=== PATIENT | female | born 1990 | race Caucasian/White ===

== ENCOUNTER 2017-04-03 07:12 | Inpatient (IN) ==
[2017-04-03] MEDS ORDERED: Ringers Solution, Lactated 1,000 ML ONE ×3 (07:43→14:04)
[2017-04-03] MEDS ORDERED: Ringers Solution, Lactated 1,000 ML IVC ONE (08:13)
[2017-04-03] MEDS ORDERED: CeFAZolin Syr 3,000MG/30 ML 3,000 MG/30 ML SYRINGE IVPB ONE (08:13)
[2017-04-03] MEDS ORDERED: Famotidine 20 MG/2 ML VIAL IVP ONE (08:13)
[2017-04-03] MEDS ORDERED: Metoclopramide 10 MG/2 ML VIAL IVP ONE (08:13)
[2017-04-03 08:24] LABS: Basophils % 0.3 %; Eosinophils # 0.1 K/mcL (0.0-0.6); Eosinophils % 0.9 %; Hematocrit 38.7 % (35.3-44.9); Hemoglobin 12.7 g/dL (11.5-15.4); Immature Granulocytes % 0.4 % (0-4); Lymphocytes # 2.1 K/mcL (0.6-4.6); Lymphocytes % 17.8 %; Mean Corpuscular HGB Conc 32.8 g/dL (31.6-35.5); Mean Corpuscular Hemoglobin 27.3 pg (28.0-33.3); Mean Platelet Volume 9.8 fL (9.4-12.4); Monocytes # 0.7 K/mcL (0.0-1.3); Monocytes % 6.1 %; Platelet Count 443 K/mcL (140-400); Red Blood Count 4.66 M/mcL (3.82-4.97); Red Cell Distribution Width 13.4 % (11.5-14.5); Segmented Neutrophils % 74.5 %
[2017-04-03 08:38] LABS: Amphetamine Screen,Urine Negative ng/mL (Cutoff=1000); Barbiturate Screen,Urine Negative ng/mL (Cutoff=200); Benzodiazepines Screen,Urine Negative ng/mL (Cutoff=200); Cannabinoid Screen,Urine Negative ng/mL (Cutoff = 50); Cocaine Screen,Urine Negative ng/mL (Cutoff= 300); Opiate Screen,Urine Negative ng/mL (Cutoff=300); Phencyclidine Screen,Urine Negative ng/mL (Cutoff=25)
--- NOTE | 2017-04-03 08:47 | Anesthesia Evaluation PreOp ---
Date of Encounter: 04/03/17 Time of Encounter: 08:45 - Past History Planned Operation: Repeat Cardiac History: Denies any Significant Hx Pulmonary History: Denies Any Significant HX INSTRUMENT CHECKER History: Denies Any Significant HX Other Medical History: GERD, Other (Morbid Obesity) Anesthesia History: No Prior Anesthetic Complications : Yes (39 week ) Alcohol Use: none Drug use: none Medications and Allergies Doxylamine/Pyridoxine HCl [Diclegis Dr 10-10 mg Tablet] 1 each PO BID 12/31/16 [ History] Omeprazole [PriLOSEC] 20 mg PO DAILY 12/31/16 [History] Vit/Iron Fumarate/FA [ Tablet] 1 each PO DAILY 12/31/16 [ History] cephALEXin [Keflex] 500 mg PO TID #21 capsule 01/01/17 [Rx] 3 Allergy/AdvReac Type Severity Reaction Status Date / Time No Known Allergies Allergy Verified 04/03/17 08:12 - Meds/Allergy Pre-op Review Medications Reviewed: Yes Allergies Reviewed: Yes Beta Blockers on Current Med List: No Anesthesia Results - Labs 04/03/17 08:05 Anesthesia Exam O2 Sat Height 1.65 m Height 1.65 m Weight 142.2 kg Weight 142.2 kg Height: 5'5 Weight: 313 lbs NPO (# of Hours): MN Pain Scale: 0 - HEENT Pupil (Motor): Pupils equal, EOMI Mallampati: II Oral Opening: Greater than 3 - INSTRUMENT CHECKER LOC: Oriented INSTRUMENT CHECKER Motor: Normal RUE, Normal LUE, Normal RLE, Normal LLE, Normal Face INSTRUMENT CHECKER Sensory: Normal: RUE, LUE, RLE, LLE, Face - Cardiac Rhythm: Regular Murmur: None JVD: No Carotid Bruit: No - Pulmonary Breath Sounds: bilateral Clear Respiratory Effort: Symmetrical Anesthesia Assess/Plan ASA Score: 3 ([place] GERD) Modified Andrey Scale for Level of Consciousness: Cooperative, oriented, and tranquil Anesthetic Plan: Regional Monitoring Plan: Standard Monitors Recovery Plan: PACU (Discussed SAB, possible GA, agrees to proceed)
--- NOTE | 2017-04-03 09:05 | OB/GYN History & Physical ---
Date of Encounter: 04/03/17 Time of Encounter: 09:00 Assessment and Plan (1) 39 weeks gestation of Current visit: Yes Status: Chronic (2) Previous delivery affecting Current visit: Yes Status: Chronic Patient declines TOLAC. Informed consent previously obtained and all questions have been answered for her. (3) complicated by cleft lip Current visit: Yes Status: Acute Workers Compensation Claims Examiner notified Qualifiers: Fetus number: single or unspecified fetus Qualified Code(s): O35.8XX0 - Maternal care for other (suspected) abnormality and damage, not applicable or unspecified (4) Single umbilical artery Current visit: Yes Status: Acute Nursery aware. Both kidneys visualized. History of Present Illness Chief complaint: repeat scheduled HPI: Ms. Abarca is a 26 year old female G 3 P 1-0-1-1 at 39 1/7 weeks presents to labor and delivery for repeat section at term. She denies any contractions, vaginal bleeding, or leaking fluid. She reports good movement. Her has been complicated by cleft lip and single umbillical artery. She has been followed by MFM with delivery plan to deliver here. Past Med Surg Social Fam HX - Past Medical History Source: patient Medical history: GERD Psychiatric history: no psych history - Past Surgical History Surgical History: , other (wisdom teeth) - Social History Smoking Status: Never smoker Smokeless Tobacco Status: No Alcohol use: none Drug use: none - Family History Mother Adopted: No Living Status: Still Living Obstetrical History - Pregnancies : 3 Para: 1 Ab's: 1 Livin Medications and Allergies Omeprazole [PriLOSEC] 20 mg PO DAILY 12/31/16 [History] Vit/Iron Fumarate/FA [ Tablet] 1 each PO DAILY 12/31/16 [ History] 3 Allergy/AdvReac Type Severity Reaction Status Date / Time No Known Allergies Allergy Verified 04/03/17 08:12 Review of System OB All systems PM: reviewed and no additional remarkable complaints except as stated Exam - Constitutional Constitutional: well developed, well nourished, no acute distress, obese - HEENT HEENT: EOMI - Lungs Respiratory exam: CTAB - Cardiovascular Cardiovascular exam: RRR - Abdomen Abdomen: Present: bowel sounds normal, gravid, non tender Results Result Diagrams: 04/03/17 08:05 Abnormal lab results WBC 12.1 K/mcL (4.3-11.1) H 04/03/17 08:05 MCH 27.3 pg (28.0-33.3) L 04/03/17 08:05 Plt Count 443 K/mcL (140-400) H 04/03/17 08:05 Neutrophils # 9.0 K/mcL (1.6-8.9) H 04/03/17 08:05 All other labs normal. - VTE Reasons for not Prescribing Prophylaxis: Treatment not Indicated - Low risk for VTE
[2017-04-03] MEDS ORDERED: *HR* FentaNYL (PF) 100 MCG/2 ML VIAL ONE (12:46)
[2017-04-03] MEDS ORDERED: EPHEDrine 50 MG/ML VIAL ONE (12:46)
[2017-04-03] MEDS ORDERED: *HR* Oxytocin 10 UNIT/ML VIAL IM ONE ×2 (12:46→14:04)
[2017-04-03] MEDS ORDERED: Water for inj. (sterile) 10 ML IV ONE (12:46)
[2017-04-03] MEDS ORDERED: Ondansetron 4 MG/2 ML VIAL IVP ONE (13:47)
[2017-04-03] MEDS ORDERED: *HR* Promethazine 25 MG/ML VIAL IVP PRN (13:47)
[2017-04-03] MEDS ORDERED: Acetaminophen IV 1,000 MG/100 ML INFUS..BTL IVPB ONE (13:48)
--- NOTE | 2017-04-03 16:39 | Anesthesia Evaluation Post Op ---
Date of Encounter: 04/03/17 Time of Encounter: 16:20 - Vital Signs Vital Signs: VSS throughout PACU stay. - Lungs Lungs: Clear Ascult./Percussion - Airway Airway: Non-obstructed - Cardiovascular Regular Rate - Mental Status Mental Status: Alert & Oriented, Answers Appropriately - Pain Pain Scale: 0 Pain Scale used: Numeric (1 - 10) - Nausea Vomiting Nausea Vomiting: Responds to treatment with IV Meds (nausea, no emesis. was given 1 dose of IV zofran with relief of symptoms.) - Hydration Hydration: NPO, Cordero catheter - Discharge PostOp Status: Transfer Patient to floor
[2017-04-03] MEDS ORDERED: Metoclopramide 10 MG/2 ML VIAL IVP PRN (17:00)
[2017-04-03] MEDS ORDERED: Simethicone 80 MG TAB.CHEW PO PRN (17:00)
[2017-04-03] MEDS ORDERED: Oxytocin 20 units/ LR 1000 mL 20 UNIT/1,000 ML BAG IVC SCH (17:00)
[2017-04-03] MEDS ORDERED: Sennosides 8.6 MG TABLET PO PRN (17:00)
[2017-04-03] MEDS ORDERED: Ibuprofen 400 MG TABLET PO PRN (17:00)
[2017-04-03] MEDS ORDERED: Ondansetron 4 MG/2 ML VIAL IVP PRN (17:00)
[2017-04-03] MEDS ORDERED: *HR* OxyCODONE Immed Rel 5 MG TABLET PO PRN (17:00)
[2017-04-03] MEDS ORDERED: *HR* OxyCODONE/APAP 5/325 TABLET PO PRN (17:00)
[2017-04-03] MEDS ORDERED: Acetaminophen 325 MG TABLET PO PRN (17:00)
--- NOTE | 2017-04-03 17:01 | OB/GYN Procedure Note ---
Section - Date of procedure: 04/03/17 Preop diagnosis: desires repeat Post-op diagnosis: same Procedure: section, repeat low transverse Surgeon: Sahara Barone Estimated blood loss (cc): 400 Was there an respiratory equipment assistant present: Yes Neon Glass Blower: Danielle Whyte Clerical Dentist Assistant: Angelia David Anesthesia Type: Spinal section complications: none Disposition: L&D Recovery Room Specimens: Placenta (hold) - (s) Infant A Delivery Date: 04/03/17 Delivery Time: 13:49 Presentation: vertex Gender: Male Viability: Viable Pounds: 7 Ounces: 8 Gram Weight: 3.39 kg at 1 minute: 8 at 5 minutes: 9 Shoulder Dystocia: not encountered Specimens collected: cord blood Placenta: partial extraction Cord: 2 umbilical vessels - Narrative Narrative: Patient was taken to the operative suite and placed under spinal anesthetic. She was then prepped and draped in normal sterile fashion in the dorsal supine position. Timeout was then performed. Antibiotics were given at room time. SCDs are on and active. Pfannenstiel skin incision is then made and carried through to underlying layer of fascia with the Bovie. The fascia was then incised in the midline and incision extended laterally with the Hall scissors. The fascia was tented up and dissected off the rectus muscles sharply. The rectus muscles were in the midline and the peritoneum was tented up and entered sharply with the Metzenbaum scissors. The peritoneal incision was then extended bluntly. The bladder blade was then inserted and the vesicouterine peritoneum was entered sharply. Bladder flap was created digitally. A low transverse uterine incision was then made. The infant vertex was brought to the incision and the infant was delivered using fundal pressure. There was no nuchal cord. Cord was clamped and cut. was handed to waiting nursery staff. Placenta delivered spontaneously complete and intact with a two-vessel cord. The uterus was cleared of all clots and debris using moist laparotomy sponge. The uterine incision was then closed using 0 Vicryl in a running locked fashion. A second layer of the same suture was used to obtain excellent hemostasis. The abdomen was then cleared of all clots and debris using copious irrigation. The fascial incision was then closed using 0 PDS in a running fashion. The subcuticular area is reapproximated with monocryl suture. The skin was closed using 4-0 Vicryl in a subcuticular fashion. Frank dressing is then placed. Mother and taken to recovery in stable condition.
[2017-04-03] MEDS: Ibuprofen 600 MG TABLET PO PRN (20:16)
[2017-04-03] MEDS: Oxytocin 20 units/ LR 1000 mL 20 UNIT/1,000 ML BAG IVC SCH (20:17)
[2017-04-04] MEDS: Ibuprofen 600 MG TABLET PO PRN ×3 (03:07→20:53)
[2017-04-04] MEDS: Oxytocin 20 units/ LR 1000 mL 20 UNIT/1,000 ML BAG IVC SCH ×2 (03:27→14:38)
[2017-04-04] MEDS: Prenatal Vit/FA 1 EACH TABLET PO SCH (08:04)
--- NOTE | 2017-04-04 08:55 | OB/GYN Progress Note ---
Date of Encounter: 04/04/17 Time of Encounter: 08:52 - Assessment and Plan (1) Status post repeat low transverse section Current Visit: Yes Status: Acute POD 1 Continue routine PP care PO pain meds as needed Advance diet as tolerated Ambulate Anticipate discharge tomorrow Subjective - Subjective Interval history: Pt reports pain well controlled with PO meds Cramping minimal Using ibuprofen Bottle feeding with cleft palate nipple Voiding without difficulty Passing flatus, no BM yet Tolerating clear liguid diet Patient reports: appetite normal, voiding normally, pain well controlled, ambulating normally [place]: doing well, bottle feeding Objective - Vital Signs Latest vital signs: Vital Signs Temp Pulse Resp BP Pulse Ox 04/04/17 03:15 97.8 F 75 16 116/77 96 04/04/17 00:11 98.3 F 70 16 113/75 97 04/03/17 20:00 97.5 F L 60 16 115/75 97 04/03/17 19:02 97.4 F L 64 16 114/69 96 04/03/17 18:00 97.4 F L 59 18 117/70 04/03/17 17:30 97.4 F L 63 16 119/75 97 04/03/17 17:04 97.8 F 62 16 107/64 98 Intake and Output 04/03/17 04/04/17 04/04/17 23:59 07:59 15:59 Intake Total 1000 / 1000 Output Total 350 / 350 375 / 375 Balance -350 / -350 625 / 625 Intake: IV Fluids 1000 / 1000 Pitocin 20 unit In 1,000 ml @ 1000 / 1000 125 mls/hr IVC .Q8H [facility] Rx#: [id number] Output: Catheter 350 / 350 375 / 375 Urethral (Cordero) 200 / 200 375 / 375 Other: Meal Dinner Percent of Meal Consumed 100% Weight 140.1 kg 137.212 kg Patient Weight 04/04/17 23:59 Weight 137.212 kg - Exam Lungs: bilateral: normal Chest: Normal S1, Normal S2 Extremities: Present: normal Abdomen: Present: normal appearance, soft Incision: Present: normal, intact Uterus: Present: normal, firm Fundal Height: 0 (At umbilicus) - Labs Labs: Laboratory Results - last 24 hr 04/03/17 04/03/17 08:09 14:11 Urine Opiates Screen Negative Ur Barbiturates Screen Negative Ur Phencyclidine Scrn Negative Ur Amphetamines Screen Negative U Benzodiazepines Scrn Negative Urine Cocaine Screen Negative U Marijuana (THC) Screen Negative Baby's Blood Type O RH POSITIVE Mother's Blood Type O RH NEGATIVE Rhogam Indicated YES
[2017-04-04] MEDS: *HR* OxyCODONE/APAP 5/325 TABLET PO PRN ×2 (14:11→22:44)
[2017-04-05] MEDS: Ibuprofen 600 MG TABLET PO PRN ×2 (04:04→13:45)
[2017-04-05] MEDS: Prenatal Vit/FA 1 EACH TABLET PO SCH (08:21)
[2017-04-05 08:22] VITALS: BP 107/73
--- NOTE | 2017-04-05 09:53 | Discharge Summary ---
Date of Encounter: 04/05/17 Time of Encounter: 09:48 - Discharge Diagnosis (1) Status post repeat low transverse section Priority: Primary Status: Acute Comments: S/P ceserean delivery day 2 Pain well controlled Passing flatus; tolerating liquid diet, may advance as tolerated Lochia light and without clots Voiding without difficulty Bottle feeding VSS Discharge home today after infant circumcision. - Discharge Medications Prescriptions: Ibuprofen [Motrin] 600 mg PO Q6HR PRN #30 tablet PRN Reason: Cramping/Mild Pain Docusate [Colace] 100 mg PO BID PRN #20 capsule PRN Reason: Constipation Ferrous Sulfate 325 mg PO DAILY #30 tablet OxyCODONE/APAP 5/325 [Percocet 5/325 MG] 1 each PO Q6H PRN 5 Days #20 tablet PRN Reason: Moderate pain 4-6 Home Medications: Omeprazole [PriLOSEC] 20 mg PO DAILY 12/31/16 [History] Vit/Iron Fumarate/FA [ Tablet] 1 each PO DAILY 12/31/16 [ History] Docusate [Colace] 100 mg PO BID PRN #20 capsule 04/05/17 [Rx] Ferrous Sulfate 325 mg PO DAILY #30 tablet 04/05/17 [Rx] Ibuprofen [Motrin] 600 mg PO Q6HR PRN #30 tablet 04/05/17 [Rx] OxyCODONE/APAP 5/325 [Percocet 5/325 MG] 1 each PO Q6H PRN 5 Days #20 tablet 01/10 [Rx] Simethicone [Gas-X] 80 mg PO TID PRN tab.chew 04/05/17 [Rx] Allergies/Adverse Reactions: 3 Allergy/AdvReac Type Severity Reaction Status Date / Time No Known Allergies Allergy Verified 04/03/17 08:12 Data Procedures and tests throughout hospitalization: Laboratory Tests 04/03/17 04/03/17 04/03/17 08:05 08:09 14:11 WBC 12.1 H RBC 4.66 Hgb 12.7 Hct 38.7 MCV 83.0 MCH 27.3 L MCHC 32.8 RDW 13.4 Plt Count 443 H MPV 9.8 Immature Gran % 0.4 Seg Neutrophils % 74.5 Lymphocytes % 17.8 Monocytes % 6.1 Eosinophils % 0.9 Basophils % 0.3 Neutrophils # 9.0 H Lymphocytes # 2.1 Monocytes # 0.7 Eosinophils # 0.1 Basophils # 0.0 Urine Opiates Screen Negative Ur Barbiturates Screen Negative Ur Phencyclidine Scrn Negative Ur Amphetamines Screen Negative U Benzodiazepines Scrn Negative Urine Cocaine Screen Negative U Marijuana (THC) Screen Negative Screen NEGATIVE Baby's Blood Type O RH POSITIVE Mother's Blood Type O RH NEGATIVE Rhogam Indicated YES Rhogam Req for Mother 1 Date of admission: 04/03/17 07:12 Primary care physician: PCP NONE Consults: 04/03/17 17:00 Consult to Network Support (W&C) [CONS] Routine Reason For Exam: Reason for SW Consult: cleft lip/palate Discharging clinician: Pat Rodriguez Anticipated date of discharge: 04/05/17 - Patient Status Disposition: Home, Self-Care Condition: Good Functional capacity at discharge: independent ambulation Overall status at discharge: patient is progressing back to baseline - Discharge Instructions Follow Up With: NONE,PCP [Primary Care Provider] - Sahara Barone DO [Partnered Physician] - - Diet and Activity Activity: increase activity as tolerated Diet: regular diet Hospital Course Reason for admission: section, IUP at term Delivery: Episiotomy: none Laceration: none Other procedures: none complications: none Discharge diagnosis: IUP at term delivered Julian baby: male Time Attestation: Total time spent providing and/or coordinating discharge services: Time Spent: Less than 30 minutes - VTE Reasons for not Prescribing Prophylaxis: Treatment not Indicated - Low risk for VTE Documentation of Mechanical Device: Intermittent pneumatic compression device Exam - Constitutional Vitals: Temp Pulse Resp BP Pulse Ox 97.8 F 88 16 107/73 98 04/05/17 07:50 04/05/17 07:50 04/05/17 07:50 04/05/17 07:50 04/05/17 07:50 General appearance IM: cooperative, A&O X 3, pleasant - Respiratory Respiratory exam: Present: CTAB - Cardiovascular Cardiovascular exam IM: Present: RRR, +S1, +S2 - GI/Abdominal GI/Abdominal exam IM: normal bowel sounds, soft Incision: normal, dry, intact (Frank dressing C/D/I) - Rectal Rectal exam: deferred - Uterine Tone: Firm Uterus Position: 1 Finger Below Umbilicus, Midline - Extremities Exam Extremities exam IM: Present: normal capillary refill, normal inspection, pedal edema (2+ BLE), radial pulses palpable and symmetrical - Neurological Exam Neurological exam: alert, oriented X3
[2017-04-05] MEDS ORDERED: Rho Immune Globulin 1,500 UNIT SYRINGE IM ONE (13:37)
== END 2017-04-05 17:00 | disposition home or self-care (01) | DRG 765 ==
LOC: 1NENULAB 07:12 → 1NENUOBS 17:02
PROVIDERS: ADMIT Obstetrics & Gynecology; ATTEND Obstetrics & Gynecology

== ENCOUNTER 2018-12-08 10:06 | Inpatient (IN) ==
[2018-12-08] MEDS ORDERED: Metoclopramide 10 MG/2 ML VIAL IVP ONE (10:58)
[2018-12-08] MEDS ORDERED: CeFAZolin Syr 3,000MG/30 ML 3,000 MG/30 ML SYRINGE IVPB ONE (10:58)
[2018-12-08] MEDS ORDERED: Famotidine 20 MG/2 ML VIAL IVP ONE (10:58)
[2018-12-08] MEDS ORDERED: Oxytocin 20 units/ LR 1000 mL 20 UNIT/1,000 ML BAG IVC ONE (10:58)
[2018-12-08] MEDS: Ringers Solution, Lactated 1,000 ML IVC SCH ×2 (11:09→11:41)
[2018-12-08] MEDS ORDERED: Ondansetron 4 MG/2 ML VIAL IVP PRN ×2 (11:20→16:47)
[2018-12-08] MEDS ORDERED: Morphine Sulfate 2 MG/ML SYRINGE IVP PRN (11:20)
[2018-12-08] MEDS ORDERED: Ibuprofen 400 MG TABLET PO PRN (11:20)
[2018-12-08] MEDS ORDERED: *HR* OxyCODONE/APAP 5/325 TABLET PO PRN (11:20)
[2018-12-08] MEDS ORDERED: Naloxone 0.4 MG/ML INJ IVP PRN ×2 (11:20→16:47)
[2018-12-08] MEDS ORDERED: *HR* Oxytocin 10 UNIT/ML VIAL IM ONE (11:21)
[2018-12-08] MEDS ORDERED: *HR* FentaNYL (PF) 100 MCG/2 ML VIAL ONE (11:21)
[2018-12-08] MEDS ORDERED: *HR* Morphine Sulfate/PF 10 MG/10 ML AMPUL ONE (11:21)
[2018-12-08 11:25] LABS: Basophils % 0.3 %; Eosinophils # 0.1 K/mcL (0.0-0.6); Eosinophils % 1.1 %; Hemoglobin 12.4 g/dL (11.5-15.4); Immature Granulocytes % 0.4 % (0-4); Lymphocytes # 1.8 K/mcL (0.6-4.6); Lymphocytes % 16.1 %; Mean Corpuscular HGB Conc 32.6 g/dL (31.6-35.5); Mean Corpuscular Volume 82.6 fL (83.0-100.0); Mean Platelet Volume 9.9 fL (9.4-12.4); Monocytes # 0.7 K/mcL (0.0-1.3); Neutrophils # 8.5 K/mcL (1.6-8.9); Platelet Count 386 K/mcL (140-400); Red Cell Distribution Width 13.6 % (11.5-14.5); Segmented Neutrophils % 76.1 %; White Blood Count 11.2 K/mcL (4.3-11.1)
[2018-12-08 11:27] LABS: Amphetamine Screen,Urine Negative ng/mL (Cutoff=1000); Barbiturate Screen,Urine Negative ng/mL (Cutoff=200); Benzodiazepines Screen,Urine Negative ng/mL (Cutoff=200); Cannabinoid Screen,Urine Negative ng/mL (Cutoff = 50); Cocaine Screen,Urine Negative ng/mL (Cutoff= 300); Opiate Screen,Urine Negative ng/mL (Cutoff=300); Phencyclidine Screen,Urine Negative ng/mL (Cutoff=25)
[2018-12-08] MEDS ORDERED: Acetaminophen IV 1,000 MG/100 ML INFUS..BTL IVPB ONE ×2 (11:48→14:45)
[2018-12-08] MEDS ORDERED: Acetaminophen IV 1,000 MG/100 ML INFUS..BTL IVPB SCH (12:00)
[2018-12-08] MEDS ORDERED: Ondansetron 4 MG/2 ML VIAL ONE (12:19)
[2018-12-08] MEDS ORDERED: *HR* Midazolam HCl 2 MG/2 ML VIAL ONE (12:49)
[2018-12-08] MEDS ORDERED: Ringers Solution, Lactated 1,000 ML ONE (13:07)
[2018-12-08] MEDS ORDERED: *HR* HYDROmorphone (PF) 1 MG/ML SYRINGE IVP PRN (13:47)
[2018-12-08] MEDS ORDERED: Measles/Mumps/Rubella Vacc 0.5 ML VIAL SQ ONE (16:47)
[2018-12-08] MEDS ORDERED: Acetaminophen 325 MG TABLET PO PRN (16:47)
[2018-12-08] MEDS ORDERED: Metoclopramide 10 MG/2 ML VIAL IVP PRN (16:47)
[2018-12-08] MEDS ORDERED: Sennosides 8.6 MG TABLET PO PRN (16:47)
[2018-12-08] MEDS ORDERED: Simethicone 80 MG TAB.CHEW PO PRN (16:47)
[2018-12-08] MEDS ORDERED: *HR* OxyCODONE Immed Rel 5 MG TABLET PO PRN (16:47)
[2018-12-08] MEDS ORDERED: Ringers Solution, Lactated 1,000 ML IVC SCH (16:47)
[2018-12-08] MEDS ORDERED: Rho Immune Globulin 1,500 UNIT SYRINGE IM ONE (16:47)
[2018-12-08] MEDS ORDERED: ceFAZolin 1,000 MG in Water for inj. (sterile) 10 ML IVP SCH (17:00)
[2018-12-08] MEDS: *HR* OxyCODONE/APAP 5/325 TABLET PO PRN (17:51)
[2018-12-08] MEDS: metroNIDAZOLE 500 MG TABLET PO SCH (20:00)
[2018-12-08] MEDS: Famotidine 20 MG TABLET PO SCH (20:00)
[2018-12-08] MEDS: ceFAZolin 1,000 MG in Water for inj. (sterile) 10 ML IVP SCH (20:00)
[2018-12-08] MEDS: Ibuprofen 600 MG TABLET PO PRN (22:01)
[2018-12-09] MEDS: ceFAZolin 1,000 MG in Water for inj. (sterile) 10 ML IVP SCH ×2 (04:00→11:47)
[2018-12-09] MEDS: Ibuprofen 600 MG TABLET PO PRN ×2 (04:00→11:14)
[2018-12-09 06:47] LABS: Basophils # 0.1 K/mcL (0.0-0.2); Basophils % 0.6 %; Eosinophils # 0.1 K/mcL (0.0-0.6); Eosinophils % 1.3 %; Hematocrit 29.9 % (35.3-44.9); Immature Granulocytes % 0.3 % (0-4); Lymphocytes # 2.2 K/mcL (0.6-4.6); Lymphocytes % 24.6 %; Mean Corpuscular HGB Conc 32.1 g/dL (31.6-35.5); Mean Corpuscular Hemoglobin 27.4 pg (28.0-33.3); Mean Corpuscular Volume 85.2 fL (83.0-100.0); Mean Platelet Volume 9.7 fL (9.4-12.4); Monocytes # 0.7 K/mcL (0.0-1.3); Monocytes % 7.7 %; Neutrophils # 5.8 K/mcL (1.6-8.9); Platelet Count 301 K/mcL (140-400); Red Blood Count 3.51 M/mcL (3.82-4.97); Red Cell Distribution Width 13.9 % (11.5-14.5); Segmented Neutrophils % 65.5 %; White Blood Count 8.9 K/mcL (4.3-11.1)
[2018-12-09] MEDS: *HR* OxyCODONE/APAP 5/325 TABLET PO PRN ×3 (06:47→20:37)
[2018-12-09 06:51] LABS: Hemoglobin 9.6 g/dL (11.5-15.4)
[2018-12-09] MEDS: metroNIDAZOLE 500 MG TABLET PO SCH ×2 (08:12→20:36)
[2018-12-09] MEDS: Prenatal Vit/FA 1 EACH TABLET PO SCH (08:13)
[2018-12-09] MEDS: Famotidine 20 MG TABLET PO SCH ×2 (08:13→20:37)
[2018-12-09] MEDS ORDERED: Rho Immune Globulin 1,500 UNIT SYRINGE IM ONE ×2 (15:25→15:36)
[2018-12-10] MEDS: Ibuprofen 600 MG TABLET PO PRN ×2 (00:43→12:37)
[2018-12-10 08:08] VITALS: BP 141/76
[2018-12-10] MEDS: metroNIDAZOLE 500 MG TABLET PO SCH (08:08)
[2018-12-10] MEDS: Famotidine 20 MG TABLET PO SCH (08:09)
[2018-12-10] MEDS: Prenatal Vit/FA 1 EACH TABLET PO SCH (08:09)
[2018-12-10] MEDS: *HR* OxyCODONE/APAP 5/325 TABLET PO PRN (08:09)
== END 2018-12-10 14:30 | disposition home or self-care (01) | DRG 784 ==
LOC: 1NENULAB → OBSVTOIN 10:06 → 1NENUOBS 16:37
PROVIDERS: ADMIT Registered Nurse; ATTEND Registered Nurse